=== PATIENT | female | born 1990 | race African-American/Black ===

== ENCOUNTER 2019-05-09 00:04 | Inpatient (IN) ==
[2019-05-09] MEDS ORDERED: MEPERIDINE 50 MG/1 ML VIAL IV PRN (00:19)
[2019-05-09] MEDS ORDERED: BUTORPHANOL 2 MG/ML VIAL IV PRN (00:19)
[2019-05-09] MEDS ORDERED: LACTATED RINGERS 500 ML IV PRN (00:19)
[2019-05-09 00:40] LABS: Basophils % 0.1 % (0.0-0.8); Eosinophils # 0.1 10*3/uL (0.0-0.87); Eosinophils % 0.9 % (0.00-10.9); Hematocrit 34.5 VOL% (35.7-47.0); Hemoglobin 10.8 GM/DL (12.0-16.0); Immature Granulocytes % 1.1 %; Immature Granulocytes Absolute 0.08 #; Lymphocytes # 1.5 10*3/uL (1.4-4.0); Lymphocytes % 21.1 % (21.3-54.2); Mean Corpuscular HGB Conc 31.3 GM/DL (32-36); Mean Corpuscular Volume 83.9 FL (87-102); Mean Platelet Volume 10.8 FL (9.6-12.0); Monocytes % 8.6 % (1.7-12.7); Neutrophils % 68.2 % (38.7-73.9); Platelet Count 249 T/CUMM (130-400); Red Blood Count 4.11 MC/CUMM (3.8-5.5); Red Cell Distribution Width 16.7 % (9.3-17.3)
[2019-05-09] MEDS: LACTATED RINGERS 1,000 ML IV SCH ×2 (00:45→07:39)
[2019-05-09] MEDS ORDERED: DINOPROSTONE 10 MG VAG.INSERT VAG ONE (01:00)
[2019-05-09] MEDS ORDERED: OXYTOCIN/LR 20 UNIT/1,000 ML BAG IV SCH (01:30)
[2019-05-09 02:55] LABS: Apearance,Urine Slightly Hazy (Clear); Bacteria,Urine Moderate /HPF (Few); Bilirubin,Urine Negative (Negative); Blood, Urine Moderate mg/dL (Negative); Calcium Oxalate Crystals,Urine Occasional /HPF (Few); Glucose,Urine (UA) Negative (Negative); Ketones,Urine 5 mg/dL (Negative); Mucus,Urine Many /LPF (Occasional); Nitrite,Urine Negative (Negative); Protein,Urine 30 MG/DL; RBC,Urine 4 /HPF (0-4); Squamous Epithelial Cell,Urine Few /HPF (0-10); Urine Color Amber (Yellow); Urine Specific Gravity 1.026 (1.001-1.035); WBC,Urine 8 /HPF (0-6)
[2019-05-09] MEDS: ONDANSETRON 4 MG/2 ML VIAL IV PRN ×2 (07:33→13:17)
[2019-05-09] MEDS ORDERED: ONDANSETRON 4 MG/2 ML VIAL IV ONE (08:03)
[2019-05-09] MEDS ORDERED: diphenhydrAMINE 50 MG/1 ML VIAL IV PRN ×2 (08:03)
[2019-05-09] MEDS ORDERED: NALOXONE 0.4 MG/ML VIAL IV PRN (08:03)
[2019-05-09] MEDS ORDERED: PROMETHAZINE 25 MG/1 ML VIAL IM ONE (08:03)
[2019-05-09] MEDS ORDERED: ePHEDrine 50 MG/ML AMP IV PRN (08:03)
[2019-05-09] MEDS ORDERED: CITRIC ACID/SODIUM CITRATE 30 ML UDCUP PO ONE (08:03)
[2019-05-09] MEDS ORDERED: FAMOTIDINE 20 MG/2 ML VIAL IV ONE (08:03)
[2019-05-09] MEDS ORDERED: hydrOXYzine HCL 25 MG/1 ML VIAL IM PRN (08:03)
[2019-05-09] MEDS ORDERED: fentaNYL 2 MCG/ROPIV 0.2% EPID 100 ML EPIDURAL SCH (08:30)
[2019-05-09] MEDS ORDERED: LIDOCAINE 1% 50 ML VIAL ONE (11:01)
[2019-05-09] MEDS ORDERED: WITCH HAZEL PADS 100/JAR TOP PRN (11:17)
[2019-05-09] MEDS ORDERED: OXYTOCIN/LR 20 UNIT/1,000 ML BAG IV ONE (11:17)
[2019-05-09] MEDS ORDERED: LANOLIN 50% CREAM 0.3 OZ TUBE TOP PRN (11:17)
[2019-05-09] MEDS ORDERED: BISACODYL 10 MG SUPP RECTAL PRN (11:17)
[2019-05-09] MEDS ORDERED: ONDANSETRON 4 MG/2 ML VIAL IV PRN (11:17)
[2019-05-09] MEDS ORDERED: ACETAMINOPHEN 325 MG TABLET PO PRN (11:17)
[2019-05-09] MEDS ORDERED: HYDROCORTISONE 2.5% RECTAL CREAM 30 GM TUBE TOP PRN (11:17)
[2019-05-09] MEDS ORDERED: oxyCODONE/ACETAMINOPHEN 5-325 MG TABLET PO PRN ×2 (11:17)
[2019-05-09] MEDS ORDERED: BENZOCAINE 20%/MENTHOL 0.5% SPRAY 56 GM CAN TOP PRN (11:17)
[2019-05-09] MEDS ORDERED: RHO(D) IMMUNE GLOBULIN 300 MCG SYRINGE IM ONE (11:30)
[2019-05-09] MEDS ORDERED: MEASLES/MUMPS/RUBELLA VACCINE 0.5 ML VIAL SUBCUT ONE (11:30)
[2019-05-09] MEDS ORDERED: DIPH/TET/ACEL PERT BOOSTER VACCINE 0.5 ML VIAL IM ONE (11:30)
[2019-05-09] MEDS: IBUPROFEN 800 MG TABLET PO PRN (19:38)
[2019-05-09] MEDS: DOCUSATE SODIUM 100 MG CAPSULE PO SCH (22:03)
[2019-05-10 05:57] LABS: Basophils % 0.2 % (0.0-0.8); Eosinophils % 0.2 % (0.00-10.9); Hematocrit 32.1 VOL% (35.7-47.0); Hemoglobin 10.4 GM/DL (12.0-16.0); Immature Granulocytes % 1.2 %; Immature Granulocytes Absolute 0.15 #; Lymphocytes # 1.5 10*3/uL (1.4-4.0); Lymphocytes % 12.1 % (21.3-54.2); Mean Corpuscular HGB Conc 32.4 GM/DL (32-36); Mean Corpuscular Volume 83.2 FL (87-102); Mean Platelet Volume 11.3 FL (9.6-12.0); Monocytes % 7.6 % (1.7-12.7); Neutrophils % 78.7 % (38.7-73.9); Platelet Count 215 T/CUMM (130-400); Red Blood Count 3.86 MC/CUMM (3.8-5.5); Red Cell Distribution Width 16.7 % (9.3-17.3)
[2019-05-10] MEDS: DOCUSATE SODIUM 100 MG CAPSULE PO SCH ×2 (09:26→21:28)
[2019-05-10] MEDS: IBUPROFEN 800 MG TABLET PO PRN (16:15)
[2019-05-11 07:19] VITALS: BP 122/72
[2019-05-11] MEDS: DOCUSATE SODIUM 100 MG CAPSULE PO SCH (08:54)
== END 2019-05-11 12:50 | disposition home or self-care (01) | DRG 560 ==
LOC: N.LDOUT 00:04 → N.LD 00:06 → N.OB 15:06
PROVIDERS: ADMIT Obstetrics & Gynecology; ATTEND Obstetrics & Gynecology